=== PATIENT | female | born 1945 | race Caucasian/White ===

== ENCOUNTER → 2016-08-21 16:53 | Outpatient (CLI) | payer MEDICARE, BC ==
[2014-10-15 09:26] VITALS: BMI 34.0
[~2016-08-21 16:53] MED LIST: ALEVE220 MG PO; BAYER CHEWABLE81 MG PO; GLUCOPHAGE500 MG PO; HYZAAR 100-25 T1 TAB PO; IMDUR30 MG PO; PLAVIX75 MG PO; TRIGLIDE160 MG PO; VITAMIN D250000 UNIT PO; VITAMIN E600 UNIT PO
== END | disposition home or self-care (01) ==
LOC: D.MAMMO 08:00
DX: Z12.31 Encounter for screening mammogram for malignant neoplasm of breast (principal)

== ENCOUNTER → 2017-04-16 10:32 | Outpatient (CLI) | payer MEDICARE, BC ==
[2014-10-15 09:26] VITALS: BMI 34.0
== END | disposition home or self-care (01) ==
LOC: D.CT 10:32
DX: J18.9 Pneumonia, unspecified organism (principal)

== ENCOUNTER → 2018-10-21 10:09 | Outpatient (CLI) | payer MEDICARE, BC ==
[2014-10-15 09:26] VITALS: BMI 34.0
== END | disposition home or self-care (01) ==
LOC: D.HCCARDIO 10:09
PROVIDERS: ATTEND Internal Medicine Cardiovascular Disease
DX: I25.119 Atherosclerotic heart disease of native coronary artery with unspecified angina pectoris (principal)

== ENCOUNTER 2018-10-29 06:57 | Outpatient (CLI) | payer MEDICARE, BC ==
[~2018-10-29] VITALS: Ht 157.5 cm; Wt 80.9 kg
--- NOTE | ~2018-10-29 | HEMODYNAMI ---
PATIENT:МАРИНА RICHEY MEDICAL RECORD: [id number] : 49 LOCATION:[facility] ADMISSION DATE: 10/29/18 Generatedon:10/29/20188:51 Patient name: МАРИНА RICHEY Patient #: [id number] SSN: : 1945 Date of study: 10/29/2018 Page: Of Hemodynamic Procedure Report Patient Data Patient Demographics Procedure consent was obtained First Name: МАРИНА Gender: Female Last Name: KADIEN : 1945 [facility] Initial: K Age: 73 year(s) Patient #: [id number] Race: Additional ID: [id number] Contact details Address: [address] [place] [address] State: [place] City: [place] Zip code: [address] Past Medical History Allergies: No known allergies Admission Admission Data Admission Date: 10/29/2018 Admission Time: 6:57 Height (in.): 62 BSA: 1.82 (m2) Height (cm.): 157.48 BMI: 32.74 (kg/m2) Weight (lbs.): 179 Weight (kg.): 81.19 Procedure Procedure Types Cath Procedure Diagnostic Procedure LHC LHC w/Coronaries PCI Procedure Coronary Stent Coronary Stent Initial Procedure Description Procedure Date Procedure Date: 10/29/2018 Procedure Start Time: 8:37 Procedure End Time: 8:50 Procedure Staff Name Function Dixon Murillo MD Performing Physician Kristina Castillo RT Monitor Jeff Martin RN Nurse Helen Silverman RT Scrub Mike Alfred RN Erecting Engineer Procedure Data Cath Procedure Fluoroscopy Diagnostic fluoroscopy Total fluoroscopy Time: 2.3 time: 2.3 min min Diagnostic fluoroscopy Total fluoroscopy dose: 413 dose: 413 mGy mGy Contrast Material Contrast Material Type Amount (ml) Isovue 300 45 Entry Location Entry Primary Successful Side Size Upsize Upsize Entry Closure Succes sful Closure Location (Fr) 1 (Fr) 2 (Fr) Remarks Device Remarks Femoral Right 5 Fr 6 Fr Exoseal artery Short Estimated blood loss: 10 ml Diagnostic catheters Device Type Used For End Catheter Placement MULTIPACK Pigtail 5 Fr LV Angiography catheter MULTIPACK JL 4.0 5Fr Left Coronary catheter Angiography MULTIPACK 3DRC 5Fr Right Coronary catheter Angiography Procedure Complications No complications Procedure Medications Medication Administration Route Dosage 0.9% NaCl I.V. 100 ml/hr Oxygen etCO2 Nasal cannula 2 l/min Heparin Flush Bag added to field 2 bags (1000units/500ml NS) Lidocaine 2% added to field 20 Versed I.V. 1 mg Fentanyl I.V. 50 mcg Versed I.V. 1 mg Fentanyl I.V. 50 mcg Heparin Bolus I.V. 4000 units Hemodynamics Rest BSA: 1.82 (m2) O2 Consumption: Estimated: 170.48 (ml/min) O2 Consumption indexed : Estimated:93.67 (ml/min/m) Heart Rate: 75 (bpm) Snapshots Pre Cath Intra NCS Post Cath Vital Signs Time Heart Resp SPO2 etCO2 NIBP (mmHg) Rhythm Pain Sedation Rate (ipm) (%) (mmHg) Status Level (bpm) 8:27:18 75 19 100 37.9 146/72(111) NSR 0 (11) 10(A) , No pain 8:31:38 72 14 100 21.2 145/67(117) NSR 0 (11) 10(A) , No pain 8:36:02 76 15 99 26.5 141/68(108) NSR 0 (11) 10(A) , No pain 8:40:24 76 20 100 40.2 144/72(118) NSR 0 (11) 9(A) , No pain 8:45:47 80 20 99 41.7 152/72(118) NSR 0 (11) 9(A) , No pain 8:50:12 81 16 99 41.8 152/67(117) NSR 0 (11) 9(A) , No pain Medications Time Medication Route Dose Verified Delivered Reason Notes Effectiveness by by 8:27:26 0.9% NaCl I.V. 100 Jeff Jeff Per physician ml/hr Mario Martin RN RN 8:27:36 Oxygen etCO2 2 Jeff Jeff for low 02 sats Nasal l/min Mario Martin cannula RN RN 8:27:45 Heparin Flush added 2 Jeff Jeff used for Bag to bags Mario Martin procedure (1000units/500ml field RN RN NS) 8:27:55 Lidocaine 2% added 20ml Jeff Jeff for local to vial Mario Martin anesthetic field DAVIS RN 8:31:09 Versed I.V. 1 mg Jeff Jeff for sedation Mario Martin RN RN 8:31:16 Fentanyl I.V. 50 Jeff Jeff for sedation mcg Mario Martin RN RN 8:38:46 Versed I.V. 1 mg Jeff Jeff for sedation Mario Martin RN RN 8:38:51 Fentanyl I.V. 50 Jeff Jeff for sedation mcg Mario Martin RN RN 8:43:55 Heparin Bolus I.V. 4000 Jeff Jeff for units Mario Martin anticoagulation RN fur storage clerk Log Time Note 8:13:27 Signed procedure consent form obtained from patient. 8:13:28 Diagnostic Cath status Elective 8:13:31 Time tracking: Regular hours (M-F 7:00 - 5:00) 8:13:35 Plan of Care:Hemodynamics will remain stable., Cardiac rhythm will remain stable., Comfort level will be maintained., Respiratory function will remain adequate., Patient/ family verbilizes understanding of procedure., Procedure tolerated without complication., Recovers from procedure without complications.. 8:14:31 Mike Alfred RN sent for patient. Start room use. 8:15:39 Patient Height : 62 inches 8:15:43 Patient Weight : 179 lbs 8:15:53 Patient allergic to No known allergies 8:18:12 Patient received from Pre/Post Procedure Room to CCL 2 Alert and oriented. Tansferred to table in Supine position. 8:18:13 Warm blankets applied, and sophie hugger turned on for patient comfort. 8:18:13 Correct patient and procedure confirmed by team. 8:18:14 ECG and BP/O2 sat monitors applied to patient. 8:18:15 Full Disclosure recording started 8:26:02 Vital chart was started 8:26:06 Rhythm: sinus rhythm 8:26:16 H&P Date Dictated: 10/16/2018 Within 30 days and on chart., H&P Addendum completed by physician on day of procedure. (MUST COMPLETE FOR ALL OUTPATIENTS). 8:26:17 Pre-procedure instructions explained to patient. 8:26:18 Pre-op teaching completed and patient verbalized understanding. 8:26:20 Family in patients room. 8:26:26 Patient NPO since Midnight. 8:26:28 Is the patient allergic to Iodine/contrast media? No. 8:26:43 Is patient on blood thinner?Yes 8:26:47 ACC The patient was administered the following blood thiners within the last 24 hours: ACCPlavix 8:26:52 Patient diabetic? No. 8:26:55 Previous problem with sedation/anesthesia? No ? 8:26:58 Snore? Yes 8:26:59 Sleep apnea? No 8:27:00 Deviated septum? No 8:27:01 Opens mouth fully? Yes 8:27:02 Sticks out tongue? Yes 8:27:04 Airway obstruction? No ? 8:27:05 Dentures? No ? 8:27:08 Pre procedure: right dorsailis pedis pulse 2+ Normal; easily identifiable; not easily obliterated 8:27:12 Patient pain scale 0/10 ?. 8:27:17 IV patent on arrival in left forearm with 0.9% NaCl at [facility]. 8:27:20 Lab results completed and on chart. 8:27:24 Right groin area was prepped with chlora-prep and draped in sterile fashion 8:27:26 0.9% NaCl 100 ml/hr I.V. was administered by Jeff Martin RN; Per physician; 8:27:26 Alarms reviewed by R. N. 8:27:26 Sharps counted by scrub and verified by R.N. 8:27:36 Oxygen 2 l/min etCO2 Nasal cannula was administered by Jeff Martin RN; for low 02 sats; 8:27:45 Heparin Flush Bag (1000units/500ml NS) 2 bags added to field was administered by Jeff Martin RN; used for procedure; 8:27:55 Lidocaine 2% 20ml vial added to field was administered by Jeff Martin RN; for local anesthetic; 8:28:34 Use device set Femoral Dx 8:28:35 ACIST Syringe (96591) opened to sterile field. 8:28:36 Bag Decanter () opened to sterile field. 8:28:36 Medline Cath Pack ([id number]) opened to sterile field. 8:28:36 DIAGNOSTIC WIRE .035 260cm J wire (474600) opened to sterile field. 8:28:37 ACIST Hand Control (35709) opened to sterile field. 8:28:38 ACIST Manifold (76310) opened to sterile field. 8:28:38 DIAGNOSTIC Multipack 5Fr catheter set ([id number]) opened to sterile field. 8:28:39 Tegaderm 4 x 4 (1626W) opened to sterile field. 8:28:39 SHEATH 5FR Saint Joseph ([id number]) opened to sterile field. 8:28:45 Final Timeout: patient, procedure, and site verified with staff and physician. All members of the team are in agreement. 8:28:46 Right groin site verified by team. 8:28:49 Maximum allowable Isovue 300 dose 300ml. Physician notified. (300ml for normal creatinines. For patients with creatinine of 1.7 or higher multiply weight(kg) x 5 divided by creatinine.) 8:28:53 Fire Safety Assessment: A--An alcohol-based skin anteseptic being used preoperatively., C--Open oxygen or nitrous oxide is being used., D--An ESU, laser, or fiber-optic light is being used. 8:28:56 Physical assessment completed. ASA score P 2 - A patient with mild systemic disease as per Dixon Murillo MD. 8:28:58 Sedation plan: IV Moderate Sedation Medication:Versed, Fentanyl 8:29:01 Baseline sample Acquired. 8:30:42 Zero performed for pressure channel P1 8:31:09 Versed 1 mg I.V. was administered by Jeff Martin RN; for sedation; 8:31:16 Fentanyl 50 mcg I.V. was administered by Jeff Martin RN; for sedation; 8:37:27 Procedure started. 8:37:31 Local anesthetic to right femoral artery with Lidocaine 2% by Dixon Murillo MD.INITIAL ACCESS ONLY 8:38:13 A 5 Fr sheath was inserted into the Right Femoral artery 8:38:46 Versed 1 mg I.V. was administered by Jeff Martin RN; for sedation; 8:38:51 Fentanyl 50 mcg I.V. was administered by Jeff Martin RN; for sedation; 8:39:04 A MULTIPACK Pigtail 5 Fr catheter was advanced over the wire and used for LV Angiography. 8:39:06 LV gram done using SLOAN 8:39:11 Injector settings: Ml/sec: 10, Volume: 20, 8:39:17 EF : 70 % 8:39:19 Catheter removed. 8:39:28 A MULTIPACK JL 4.0 5Fr catheter was advanced over the wire and used for Left Coronary Angiography. 8:41:23 Catheter removed. 8:41:46 A MULTIPACK 3DRC 5Fr catheter was advanced over the wire and used for Right Coronary Angiography. 8:42:14 Catheter removed. 8:42:18 Use device set TAU PCI 8:42:19 SHEATH 6FR [facility] Joseph (OHP791) opened to sterile field. 8:42:22 INFLATOR Merit BasixCompak (SY4785) opened to sterile field. 8:42:25 CHOICE PT Extra Support 182cm wire ([id number]) opened to sterile field. 8:42:27 GUIDE 6FR XBLAD 3.5 catheter ([id number]) opened to sterile field. 8:42:41 Sheath upsized to a 6 Fr Short. 8:43:55 Heparin Bolus 4000 units I.V. was administered by Jeff Martin RN; for anticoagulation; 8:44:29 6 Fr XBLAD 3.5 guide catheter was inserted over the wire 8:44:33 CHOICE PT ES wire advanced. 8:45:26 Place stent Inflation Number: 1 A INTEGRITY RX 3.5 x 18 stent ([id number]) was prepped and advanced across the Mid CX. The stent was deployed at 15 MARIUM for 0:08 (min:sec). 8:45:45 Stent catheter was removed intact over wire. 8:45:45 Wire removed. 8:45:46 Guide catheter removed. 8:45:54 Sheath removed intact; hemostasis achieved with Exoseal to the Right Femoral artery. 8:45:55 Procedure ended.(Physican Out) 8:46:20 Fluoroscopy time 02.30 minutes. 8:46:24 Fluoroscopy dose: 413 mGy 8:46:24 Flurop Dose total: 413 8:46:28 Contrast amount:Isovue 300 45ml. 8:46:29 Sharps counted by scrub and verified by R.N. 8:46:31 Insertion/operative site no bleeding no hematoma. 8:46:34 Post-op/insertion site Right Femoral artery dressed using a 4 x 4 and Tegaderm. 8:46:38 Post right femoral artery:stable, clean and dry 8:46:40 Post Procedure Pulses reassessed and unchanged 8:46:42 Post-procedure physical assessment completed. ASA score P 2 - A patient with mild systemic disease as per Dixon Murillo MD. 8:46:45 Post procedure rhythm: unchanged. 8:46:48 Estimated blood loss: 10 ml 8:46:49 Post procedure instruction explained to patient.Patient verbalizes understanding. 8:46:50 Patient needs reinforcement of post procedure teaching. 8:46:51 See physician's report for complete and final results. 8:47:11 Procedure type changed to Cath procedure, Diagnostic procedure, LHC, LHC w/Coronaries, PCI procedure, Coronary Stent, Coronary Stent Initial 8:47:16 Procedure Complication : No complications 8:48:12 EXOSEAL 6Fr (EX600) opened to sterile field. 8:49:10 Procedure and supply charges have been captured, reviewed, submitted and are correct. 8:50:42 Vital chart was stopped 8:50:44 Report given to Pre/Post Procedure Room. 8:50:46 Patient transfered to Pre/Post Procedure Room with Stretcher. 8:50:47 Procedure ended. 8:50:47 Full Disclosure recording stopped 8:50:55 End room use (Document Last) Intervention Summary Intervention Notes Time ActionType Lesion and Equipment Action# Pressure Duration Attributes Used 8:45:26 Place stent Mid CX INTEGRITY RX 1 15 00:08 3.5 x 18 stent ([id number]) Device Usage Item Name Manufacture Quantity Catalog Number Hospital Part Current Mini [facility] Lot# / Charge Number Stock Stock Serial# Code ACIST Acist 1 24616 376749 218969 136560 20 Syringe Medical (45588) Systems Inc Bag Decanter Microtek 1 2001S 044329 86485 102997 5 () Medical Inc. Medline Cath Medline 1 [id number] 633062 54171 374411 5 Pack ([id number]) DIAGNOSTIC [facility] Velas[place] 1 822667 698283 900223 429420 30 WIRE .035 260cm J wire (895180) ACIST Hand Acist 1 84039 150762 039859 743637 5 Control Medical (41560) Systems Inc ACIST Acist 1 24446 201812 497329 370020 5 Manifold Medical (24637) Systems Inc DIAGNOSTIC Cardinal 1 QD6513 238251 83256 767890 30 Multipack Health 5Fr catheter set (XV8614) Tegaderm 4 x 3M 1 1626W 112156 792305 554690 5 4 (1626W) SHEATH 5FR Terumo 1 OIJ014 363253 526524 470375 5 [facility] (BKW537) MULTIPACK Cardinal 1 325130 5 Pigtail 5 Fr Health catheter MULTIPACK JL Cardinal 1 275128 5 4.0 5Fr Health catheter MULTIPACK Cardinal 1 538876 5 3DRC 5Fr Health catheter SHEATH 6FR Terumo 1 HSE983 397885 591608 655332 40 [facility] Joseph (MVD759) INFLATOR Merit 1 GZ3748 226260 963683 775304 15 [facility] Medical BasixCompak (MD4299) CHOICE PT [place] 1 [id number] 282333 236207 589213 5 Extra Scientific Support 182cm wire ([id number]) GUIDE 6FR Cardinal 1 [id number] 695576 291732 069927 10 XBLAD 3.5 Health catheter (00925451) INTEGRITY RX Medtronic 1 [id number] 431245 186549 790643 5 [id number] 3.5 x 18 stent ([id number]) EXOSEAL 6Fr Cardinal 1 EX600 278530 789777 875312 10 (EX600) Health Signature Audit [place] Stage Time Signature Unsigned Intra-Procedure 10/29/2018 Kristina 8:51:12 AM Counts RT(R) Signatures Monitor : Kristina Signature : Counts RT Date : Time : [facility] [address] [place] [address]
[2018-10-29 07:53] VITALS: BP 97/79; Ht 157.5 cm; Wt 80.9 kg
[2018-10-29 08:15] LABS: ANION GAP 12.5 mmol/L (8-16); CALCIUM 9.1 mg/dL (8.5-10.1); CARBON DIOXIDE 31.2 mmol/L (21.0-32.0); CREATININE - SERUM 0.9 mg/dL (0.6-1.3); POTASSIUM - SERUM 4.7 mmol/L (3.5-5.1)
[2018-10-29 08:32] LABS: BASOPHILS 0.1 % (0-2); EOSINOPHILS 3.6 % (0-7); HEMATOCRIT 45.5 % (36.0-48.0); HEMOGLOBIN 15.2 g/dL (12-16); IMMATURE GRANULOCYTES 0.3 % (0-5); LYMPHOCYTES 12.2 % (15-50); MCH 29.1 pg (26.0-34.0); MCHC 33.4 g/dL (31.0-37.0); MONOCYTES 6.8 % (2-11); PLATELET COUNT 219 10x3/uL (130-400); RBC 5.23 10x6/uL (4.00-5.40); RDW 14.4 % (11.5-14.5); WBC 7.5 10x3/uL (4.8-10.8)
--- NOTE | 2018-10-29 09:15 | NUR ---
RIGHT GROIN DRESSING C/D/I. NO S/S OF HEMATOMA NOTED. VSS. PT ALERT. CALL LIGHT WITHIN REACH.
--- NOTE | 2018-10-29 09:46 | NUR ---
PT RESTING COMFORTABLY. RIGHT GROIN DRESSING C/D/I. NO S/S OF HEMATOMA NOTED. VSS. NO NEEDS AT THIS TIME.
--- NOTE | 2018-10-29 10:21 | NUR ---
PT RESTING COMFORTABLY. VSS. RIGHT GROIN DRESSING C/D/I. NO S/S OF HEMATOMA NOTED. CALL LIGHT WITHIN REACH.
--- NOTE | 2018-10-29 10:50 | NUR ---
PT RESTING COMFORTABLY. VSS. RIGHT GROIN DRESSING C/D/I. NO S/S OF HEMATOMA NOTED. CALL LIGHT WITHIN REACH.
--- NOTE | 2018-10-29 11:24 | NUR ---
PT ON BEDPAN. VOIDED WITHOUT DIFFICULTY. RIGHT GROIN DRESSING C/D/I. NO S/S OF HEMATOMA NOTED.
--- NOTE | 2018-10-29 11:37 | NUR ---
HEAD OF BED INC TO 30 DEGREES. RIGHT GROIN DRESSING C/D/I. NO S/S OF HEMATOMA NOTED. PT SET UP WITH SANDWICH TRAY AND DRINK. FAMILY AT BEDSIDE. DR. SANDOVAL ROUNDED AND SPOKE WITH PT AND PT'S FAMILY.
--- NOTE | 2018-10-29 12:03 | NUR ---
LEFT AC PIV D/C'D WITH CATH TIP INTACT. PT TOLERATED WELL. RIGHT GROIN DRESSING C/D/I. NO S/S OF HEMATOMA NOTED. PT INSTRUCTED TO GET UP AND DRESSED. FAMILY AT BEDSIDE TO ASSIST.
--- NOTE | 2018-10-29 12:19 | NUR ---
DISCUSSED DISCHARGE INSTRUCTIONS WITH PT AND PTS FAMILY. THEY VOICED UMDERSTANDING.
--- NOTE | 2018-10-29 12:25 | NUR ---
PT TAKEN OUT TO VEHICLE BY WHEELCHAIR. NO S/S OF DISTRESS NOTED. ALL BELONGINGS IN HAND.
--- NOTE | 2018-10-31 15:03 | OP ---
PATIENT NAME: МАРИНА RICHEY MEDICAL RECORD: [id number] :49 LOCATION:[facility] ADMISSION DATE: SURGEON: IFEANYI SANDOVAL MD DATE OF OPERATION: 10/29/2018 PROCEDURES: 1. PTCA and stent, left circumflex. 2. Left heart catheterization. 3. Selective coronary angiography. 4. Left ventriculogram. INDICATION: Angina and coronary artery disease. PROCEDURE IN DETAIL: After informed consent was obtained with detailed description of risks and benefits as well as alternative therapies, the patient elected to proceed with angiogram and angioplasty. The right femoral area was prepped and draped in normal sterile fashion. The right femoral artery was cannulated via modified Seldinger technique with placement of 6-Urdu sheath. All catheters were exchanged through this sheath. FINDINGS: Left ventriculogram performed in standard 30-degree SLOAN view reveals good cardiac wall motion throughout all segments. Overall ejection fraction is estimated at 60%. SELECTIVE CORONARY ANGIOGRAPHY: 1. Left main is with no significant angiographic disease. 2. Left anterior descending has previously placed stents. These are widely patent. There is no significant restenosis. No disease elsewise of the LAD or its branches. 3. Left circumflex has 90% to 95% stenosis in the mid vessel. 4. Right coronary has previously placed stents. These are widely patent with no significant restenosis. No disease elsewise throughout the RCA or its branches. PTCA AND STENT OF THE LEFT CIRCUMFLEX: The stent used was 3.5 x 18-mm Integrity. Result was 0% residual stenosis. OVERALL IMPRESSION: Successful PTCA and stent of the left circumflex, going from 90% to 95% initial stenosis to 0% residual. TRANSINT:[id number] Voice Confirmation ID: [id number] DOCUMENT ID: [id number] IFEANYI SANDOVAL MD at 1503 CC: [id number] DICTATION DATE: 10/29/18 0853 MANAGER TRAINEE: 10/29/18 1254 [facility] CLI 10/29/[address] [address]
== END 2018-10-29 12:25 | disposition home or self-care (01) ==
LOC: D.CATH 06:57
PROVIDERS: ATTEND Internal Medicine Interventional Cardiology
DX: I25.119 Atherosclerotic heart disease of native coronary artery with unspecified angina pectoris (principal); Z01.812 Encounter for preprocedural laboratory examination

== ENCOUNTER → 2019-04-20 09:06 | Outpatient (CLI) | payer MEDICARE, BC ==
[2018-10-29 07:53] VITALS: BMI 32.6
--- NOTE | 2019-04-28 13:38 | ST ---
PATIENT:МАРИНА RICHEY MEDICAL RECORD: [id number] SEX: F LOCATION:[facility] ORDER #: ADMISSION DATE: 04/20/19 AGE OF PATIENT: 74 REFERRING PHYSICIAN: INTERPRETING PHYSICIAN: IFEANYI SANDOVAL MD DATE OF SERVICE: 04/20/2019 INDICATION: Angina, coronary artery disease, shortness of breath, hypertension. She was exercised on standard Lexiscan protocol with 27 mCi of sestamibi injected at peak stress, 10 mCi used previously for rest images. FINDINGS: Gated SPECT reveals preserved ejection fraction at 81% with good wall motion and thickening and brightening throughout all segments. SPECT imaging Cardiolite was used as myocardial fusion agent. There is homogeneous uptake throughout all segments at rest and stress with no evidence of inducible ischemia or previous infarction. OVERALL IMPRESSION: 1. This is a normal nuclear stress test with no evidence of inducible ischemia or previous infarction. 2. Gated SPECT reveals a preserved ejection fraction at 81%. In this patient with ongoing symptomatology, the current scan does not suggest the presence of hemodynamically significant coronary artery disease. Evaluate noncardiac etiology of chest pain. TRANSINT:[id number] Voice Confirmation ID: [id number] DOCUMENT ID: [id number] IFEANYI SANDOVAL MD at 1338 CC: CHU ELIZONDO [id number] DICTATION DATE: 04/21/19 171 ELECTRON BEAM MACHINE WELDER SETTER: 04/22/19 0053 DEP CLI 04/20/19 [facility] [address] [place] [address]
== END | disposition home or self-care (01) ==
LOC: D.HCCARDIO 09:06
PROVIDERS: ATTEND Internal Medicine Interventional Cardiology
DX: I25.10 Atherosclerotic heart disease of native coronary artery without angina pectoris (principal)